=== PATIENT | female | born 1995 | race Caucasian/White ===

== ENCOUNTER 2017-10-31 18:36 | Emergency (ER) | payer BC, OTHER ==
[~2017-10-31] VITALS: Ht 162.6 cm; Wt 91.0 kg
[~2017-10-31 18:36] MED LIST: MEDR10 PO; Z.0.BCPILL PO
[2017-10-31 18:44] VITALS: BP 128/78; PULSE 121; RESP 16; TEMP 98.7; O2SAT 97
[2017-10-31] MEDS ORDERED: thera-flu (18:56)
--- NOTE | 2017-10-31 18:58 | PD ---
HPI Chief Complaint: Cold / Flu Symptoms Time Seen by Provider: 18:49 Travel History International Travel<30 days: No Contact w/Intl Traveler<30days: No Traveled to known affect area: No History of Present Illness HPI Patient comes in complaining of flulike symptoms ongoing for 4-5 days. Patient reports taking hetk-kha-tebsurs cold medication for symptomatic relief with minimal relief of symptoms. Patient reports she was around her boss had similar symptoms, but improved after a couple of days. Patient reports associated subjective fever and sore throat that has improved. Patient denies any known nausea, vomiting, loss change in bowel or bladder control pain, back pain, neck pain, headache, neck pain, shortness of breath, chest pain, abdominal pain, or . Denies anything making symptoms worse. Reports associated cough is occasionally productive with yellow phlegm. Denies anything making cough worse. [id number] medication help some. Denies any pain or radiation of pain. PFSH Past Medical History Asthma: Yes (CHILDHOOD) Diminished Hearing: No ?: Unknown Social History Alcohol Use: No Tobacco Use: Yes (occasionally) Substance Use: No Allergies-Medications (Allergen,Severity, Reaction): Coded Allergies: penicillin G (Unverified Allergy, Severe, VOMITING, 10/31/17) amoxicillin (Verified Adverse Reaction, Severe, Nausea/Vomiting, 10/31/17) Reported Meds & Prescriptions Reported Meds & Active Scripts Active Reported [thera-flu] Review of Systems Except as stated in HPI: all other systems reviewed are Neg Physical Exam Narrative GENERAL: Well-developed, overly nourished, in no acute distress, and non-ill appearing. SKIN: Focused skin assessment warm and dry. HEAD: Atraumatic. Normocephalic. EYES: Pupils equal and round. EOMI. No scleral icterus. No injection or drainage. ENT: No nasal bleeding or discharge. Mucous membranes pink and moist. Tympanic membranes pearly canchola bilaterally. Posterior pharynx nonerythematous without exudate. Uvula is midline. No tenderness to facial sinuses to palpation. NECK: Trachea midline. No cervical lymphadenopathy. Supple. No nuclear rigidity. CARDIOVASCULAR: Regular rate and rhythm. No murmur appreciated. RESPIRATORY: No accessory muscle use. No respiratory distress. Clear to auscultation. Breath sounds equal bilaterally. GASTROINTESTINAL: Abdomen soft, non-tender, nondistended, and no guarding. Hepatic and splenic margins not palpable. Normal bowel sounds 4. No pulsatile mass. MUSCULOSKELETAL: No obvious deformities. No clubbing. No cyanosis. No edema. Full range of motion. NEUROLOGICAL: Awake and alert. No obvious cranial nerve deficits. Motor grossly within normal limits. Normal speech. PSYCHIATRIC: Appropriate mood and affect; insight and judgment normal. Data Data Last Documented VS Vital Signs Date Time Temp Pulse Resp B/P (MAP) Pulse Ox O2 Delivery O2 Flow Rate FiO2 10/31/17 20:09 10/31/17 19:59 97.0 105 18 97 Room Air Orders Orders Group A Rapid Strep Screen (10/31/17 18:53) Influenzae A/B Antigen (10/31/17 18:53) Chest, Single Ap (10/31/17 ) Strep Culture (Group A) (10/31/17 19:05) Ed Discharge Order (10/31/17 20:00) MDM Medical Decision Making Medical Screen Exam Complete: Yes Emergency Medical Condition: Yes Interpretation(s) Last Impressions Chest X-Ray 10/31/17 0000 Signed Impressions: Service Date/Time: Tuesday, October 31, 2017 19:34 - CONCLUSION: No evidence of acute cardiopulmonary disease. Ciaran Pedro MD Differential Diagnosis Influenza, strep pharyngitis, URI, viral pharyngitis, bronchitis, viral syndrome , pneumonia Narrative Course Patients symptom complex of cough and congestion is consistent with viral URI. The patient is non-ill appearing and is in no respiratory distress and comfortable. The patient moves air well and oxygen saturations are normal. There is no clinical evidence to suggest pneumonia at this time. Plan of care and management were discussed with the patient who agreed with plan. The patient was instructed to follow up with their physician and instructed to return if worsens, progressively worsening shortness of breath or difficulty breathing, persistent fever, chest pains or discomfort, inability to keep medication or fluids down with or without vomiting, or as needed. Patient in no obvious distress upon re-evaluation. All pertinent laboratory/ Radiology result(s) discussed with patient. Any questions/concerns in reference to patient diagnosis/condition discussed and clarified prior to patient's discharge. Reinforced sheer importance of close follow up with patient 's primary physician or primary care clinic. Instructed patient to return to ED immediately, if symptoms return/worsen. Patient showed understanding of above instructions. Further instructions and recommendations were detailed in discharge paperwork. Patient ambulated without difficulty out of ED at discharge. Diagnosis Primary Impression: Viral syndrome Referrals: [facility] Patient Instructions: General Instructions, Viral Syndrome (ED) Additional Instructions: Follow-up with your primary care physician this week for reevaluation. Use over -the-counter cold and flu medication for symptomatic relief. Follow instructions on the packaging. Drink plenty of non-caffeinated and nonalcoholic fluids. Return to the emergency department if symptoms get worse. Disposition: 01 DISCHARGE HOME Condition: Stable Mele Mullins Oct 31, 2017 18:58
--- NOTE | 2017-10-31 19:48 | RADRPT ---
EXAM DATE/TIME: 10/31/2017 19:34 [facility] COMPARISON: CHEST SINGLE AP, April 20, 2015, 2:19. INDICATIONS : Cough and fever for 5 days. MEDICAL HISTORY : None. SURGICAL HISTORY : None. ENCOUNTER: Initial ACUITY: 4 - 6 days PAIN SCORE: 0/10 LOCATION: Bilateral chest FINDINGS: A single view of the chest demonstrates the lungs to be symmetrically aerated without evidence of mas s, infiltrate or effusion. The cardiomediastinal contours are unremarkable. Osseous structures are intact. CONCLUSION: No evidence of acute cardiopulmonary disease. Ciaran Pedro MD on October 31, 2017 at 19:45 Board Certified Radiologist. This report was verified electronically.
[2017-10-31 19:59] VITALS: BP 118/74; PULSE 105; RESP 18; TEMP 97; O2SAT 97
== END 2017-10-31 20:10 | disposition home or self-care (01) ==
LOC: PHEFT 18:36
DX: B34.9 Viral infection, unspecified (principal); R50.9 Fever, unspecified; R07.0 Pain in throat; R05 Cough; Z72.0 Tobacco use; Z87.09 Personal history of other diseases of the respiratory system
CPT/HCPCS: 71045; 87081; 87804; 87880; 99284

== ENCOUNTER 2017-11-29 19:46 | Emergency (ER) | payer BC ==
[~2017-11-29] VITALS: Ht 162.6 cm; Wt 90.9 kg
[~2017-11-29 19:46] MED LIST changes: -MEDR10 PO; -Z.0.BCPILL PO; +thera-flu
[2017-11-29 20:46] VITALS: BP 151/67; PULSE 101; RESP 20; TEMP 98.8; O2SAT 98
[2017-11-29] MEDS ORDERED: SODIUM CHLOR 0.9% 1000 ML INJ 1,000 ML IV ONE (22:36)
--- NOTE | 2017-11-29 22:54 | PD ---
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 She did vomit once. She denies any diarrhea. She does complain of midline pelvic discomfort with an intensity level of 3/10. The patient is actually been dealing with dysfunctional bleeding for many years. This is not unusual for her to have increased vaginal bleeding with her periods. PFSH Past Medical History Asthma: Yes (CHILDHOOD) Diminished Hearing: No ?: Unknown LMP: 11/30/17 Social History Alcohol Use: No Tobacco Use: Yes (occasionally) Substance Use: No Allergies-Medications (Allergen,Severity, Reaction): Coded Allergies: penicillin G (Unverified Allergy, Severe, VOMITING, 11/29/17) amoxicillin (Verified Adverse Reaction, Severe, Nausea/Vomiting, 11/29/17) Reported Meds & Prescriptions Reported Meds & Active Scripts Active Reported [thera-flu] Review of Systems Except as stated in HPI: all other systems reviewed are Neg Physical Exam Narrative GENERAL: The patient is alert, oriented 3 in moderate apparent distress with her pelvic discomfort. Her vital signs show blood pressure 151/67 with a heart rate of 101 but otherwise normal. SKIN: Focused skin assessment warm/dry. HEAD: Atraumatic. Normocephalic. EYES: Pupils equal and round. No scleral icterus. No injection or drainage. ENT: No nasal bleeding or discharge. Mucous membranes pink and moist. NECK: Trachea midline. No JVD. CARDIOVASCULAR: Regular rate and rhythm. No murmur appreciated. RESPIRATORY: No accessory muscle use. Clear to auscultation. Breath sounds equal bilaterally. GASTROINTESTINAL: Abdomen soft, with slight tenderness to direct palpation in the midline suprapubic area, nondistended. Hepatic and splenic margins not palpable. MUSCULOSKELETAL: No obvious deformities. No clubbing. No cyanosis. No edema. NEUROLOGICAL: Awake and alert. No obvious cranial nerve deficits. Motor grossly within normal limits. Normal speech. PSYCHIATRIC: Appropriate mood and affect; insight and judgment normal. GENITOURINARY: Normal external genitalia without lesions or erythema. Vaginal vault with blood but no other drainage. Cervical os was open with bloody drainage. No cervical motion tenderness. Uterus slightly tender and nonenlarged. Bilateral adnexa nontender without masses. Fibrinous material and clots were removed from the outside of the vagina. Data Data Last Documented VS Vital Signs Date Time Temp Pulse Resp B/P (MAP) Pulse Ox O2 Delivery O2 Flow Rate FiO2 11/30/17 00:13 91 16 112/51 (71) 100 Room Air 11/29/17 20:46 98.8 Orders Orders Beta Hcg (Quant/Titer) (11/29/17 22:36) Complete Blood Count With Diff (11/29/17 22:36) Basic Metabolic Panel (Bmp) (11/29/17 22:36) Urinalysis - C+S If Indicated (11/29/17 22:36) Sodium Chlor 0.9% 1000 Ml Inj (Ns 1000 M (11/29/17 22:36) Complete Rh (11/29/17 22:49) Labs Laboratory Tests Test 11/29/17 23:18 White Blood Count 11.4 TH/MM3 Red Blood Count 4.76 MIL/MM3 Hemoglobin 11.3 GM/DL Hematocrit 35.0 % Mean Corpuscular Volume 73.4 FL Mean Corpuscular Hemoglobin 23.8 PG Mean Corpuscular Hemoglobin Concent 32.5 % Red Cell Distribution Width 14.1 % Platelet Count 319 TH/MM3 Mean Platelet Volume 8.3 FL Neutrophils (%) (Auto) 75.4 % Lymphocytes (%) (Auto) 19.8 % Monocytes (%) (Auto) 4.0 % Eosinophils (%) (Auto) 0.3 % Basophils (%) (Auto) 0.5 % Neutrophils # (Auto) 8.5 TH/MM3 Lymphocytes # (Auto) 2.3 TH/MM3 Monocytes # (Auto) 0.5 TH/MM3 Eosinophils # (Auto) 0.0 TH/MM3 Basophils # (Auto) 0.1 TH/MM3 CBC Comment DIFF FINAL Differential Comment Urine Color YELLOW Urine Turbidity CLEAR Urine pH 6.5 Urine Specific [place] 1.027 Urine Protein TRACE mg/dL Urine Glucose (UA) NEG mg/dL Urine Ketones NEG mg/dL Urine Occult Blood LARGE Urine Nitrite NEG Urine Bilirubin NEG Urine Leukocyte Esterase NEG Urine RBC 4-9 /hpf Urine WBC 0-2 /hpf Urine Squamous Epithelial Cells 0-5 /hpf Urine Bacteria NONE /hpf Microscopic Urinalysis Comment CULT NOT INDICATED Blood Urea Nitrogen 8 MG/DL Creatinine 0.84 MG/DL Random Glucose 98 MG/DL Calcium Level 8.3 MG/DL Sodium Level 137 MEQ/L Potassium Level 3.6 MEQ/L Chloride Level 105 MEQ/L Carbon Dioxide Level 24.0 MEQ/L Anion Gap 8 MEQ/L Estimat Glomerular Filtration Rate 85 ML/MIN Human Chorionic Gonadotropin, Quant LESS THAN 1 MIU/ML MDM Medical Decision Making Medical Screen Exam Complete: Yes Emergency Medical Condition: Yes Medical Record Reviewed: Yes Interpretation(s) The CBC shows a white count 11,400 and hemoglobin of 11.3 but is otherwise unremarkable. The basic metabolic profile shows a GFR of 85, calcium 8.3 but is otherwise normal. The beta-hCG is less than 1. The urinalysis shows large blood and 4-9 red cells but is otherwise normal and culture is not indicated. Differential Diagnosis Threatened AB, incomplete AB, complete AB, dysfunctional uterine bleeding Narrative Course It is now 0100 and the patient feels much better and wants to go home. Impression: Dysfunctional uterine bleeding Plan: The patient has a ironer or presser and she should follow-up with her ironer or presser. Diagnosis Primary Impression: Dysfunctional uterine bleeding Additional Instructions: As we discussed, follow-up with your ironer or presser. Disposition: 01 DISCHARGE HOME Condition: Stable Kevin Pinto MD Nov 29, 2017 22:54
[2017-11-29 23:39] LABS: AUTOMATED NEUTROPHIL # 8.5 TH/MM3 (1.8-7.7); BASOPHIL # 0.1 TH/MM3 (0-0.2); BASOPHIL % 0.5 % (0.0-2.0); EOSINOPHIL % 0.3 % (0.0-4.0); HEMOGLOBIN 11.3 GM/DL (11.6-15.3); LYMPH % 19.8 % (9.0-44.0); LYMPHOCYTE # 2.3 TH/MM3 (1.0-4.8); MEAN CELL VOLUME 73.4 FL (80.0-100.0); MEAN CORPUSCULAR HEMOGLOBIN 23.8 PG (27.0-34.0); MEAN CORPUSCULAR HGB CONC 32.5 % (32.0-36.0); MEAN PLATELET VOLUME 8.3 FL (7.0-11.0); MONOCYTE # 0.5 TH/MM3 (0-0.9); NEUT % 75.4 % (16.0-70.0); PLATELET COUNT 319 TH/MM3 (150-450); RED BLOOD COUNT 4.76 MIL/MM3 (4.00-5.30); RED CELL DISTRIBUTION WIDTH 14.1 % (11.6-17.2); WHITE BLOOD COUNT 11.4 TH/MM3 (4.0-11.0)
[2017-11-29 23:40] LABS: BILIRUBIN, URINE NEG (NEG); BLOOD, URINE LARGE (NEG); GLUCOSE,URINE NEG (NEG); KETONE, URINE NEG (NEG); NITRITE,URINE NEG (NEG); PH, URINE 6.5 (5.0-8.5); URINE LEUKOCYTE ESTERASE NEG (NEG)
[2017-11-29 23:46] LABS: CHLORIDE 105 MEQ/L (98-107); SODIUM (NA) 137 MEQ/L (136-145)
[2017-11-29 23:47] LABS: URINE COLOR YELLOW (YELLW/STRAW)
[2017-11-29 23:48] LABS: SQUAMOUS EPITHELIAL CELL URINE 0-5 /hpf (0-5); WBC, URINE 0-2 /hpf (0-5)
[2017-11-29 23:49] LABS: BLOOD UREA NITROGEN 8 MG/DL (7-18); CALCIUM 8.3 MG/DL (8.5-10.1); GLUCOSE,RANDOM 98 MG/DL (74-106)
[2017-11-29 23:52] LABS: CREATININE 0.84 MG/DL (0.50-1.00); GLOMERULAR FILTRATION RATE 85 ML/MIN (>89)
[2017-11-30 00:13] VITALS: BP 112/51; PULSE 91; RESP 16; O2SAT 100
[2017-11-30 01:33] VITALS: BP 118/76
== END 2017-11-30 01:38 | disposition home or self-care (01) ==
LOC: PHED 19:46
DX: N93.8 Other specified abnormal uterine and vaginal bleeding (principal); J45.909 Unspecified asthma, uncomplicated; Z88.0 Allergy status to penicillin
CPT/HCPCS: 80048; 81001; 84702; 85025; 86901; 96360; 99284; J7030